=== PATIENT | female | born 1960 | race African-American/Black ===

== ENCOUNTER 2025-01-31 20:06 | Emergency (ER) | payer OTHER, MEDICAID ==
[~2025-01-31] VITALS: Ht 180.3 cm; Wt 118.1 kg
[2025-01-31 20:09] VITALS: TEMP 98
[2025-01-31 21:00] VITALS: PULSE 111; RESP 22; O2SAT 96
--- NOTE | 2025-01-31 21:06 | ED.PDOC ---
History of Present Illness HPI Comments 64-year-old female with trach presents with a chief complaint of SOB and trach issues. Patient states that her trach balloon has not been staying inflated and has been causing her to feel increasingly SOB. Patient mentions that this has been an issue for the past 3 days. Patient also reports that it has been difficult for her to talk due to the issue. Patient is able to speak in complete sentences at this time. Chief Complaint: Shortness of Breath Time Seen by MD: 20:36 Reviewed Notes: Medications, Allergies Allergies: Coded Allergies: Hydromorphone (Verified Allergy, Unknown, 01/31/25) Information Source: Patient Mode of Arrival: EMS Severity: Moderate Timing: Days Duration: Since onset Prehospital treatment: None Past Medical History PAST MEDICAL HISTORY: Denies Surgical History: Denies all surgeries PROCESSING TECHNOLOGIST History: Denies all PROCESSING TECHNOLOGIST Hx Family History Family History: Reviewed,noncontributory to illness Social History Smoker: Non-Smoker Alcohol: Denies ETOH Use Drugs: Denies Drug Use Lives In: Home Constitutional: denies: chills, diaphoresis, fatigue, fever, malaise, sweats, weakness, others EENTM: denies: blurred vision, double vision, ear bleeding, ear discharge, ear drainage, ear pain, ear ringing, eye pain, eye redness, hearing loss, mouth pain, mouth swelling, nasal discharge, nose bleeding, nose congestion, nose pain, photophobia, tearing, throat pain, throat swelling, voice changes, others Respiratory: reports: shortness of breath; denies: cough, hemoptysis, orthopnea, SOB at rest, SOB with excertion, stridor, wheezing, others Cardiovascular: denies: chest pain, dizzy spells, diaphoresis, Dyspnea on exertion, edema, irregular heart beat, left arm pain, lightheadedness, palpitations, PND, syncope, others Gastrointestinal: denies: abdomen distended, abdominal pain, blood streaked bowels, constipated, diarrhea, dysphagia, difficulty swallowing, hematemesis, melena, nausea, poor appetite, poor fluid intake, rectal bleeding, rectal pain, vomiting, others Genitourinary: denies: abnormal vagina bleeding, burning, dyspareunia, dysuria, flank pain, frequency, hematuria, incontinence, pain, , vagina discharge, urgency, others Neurological: denies: dizziness, fainting, headache, left sided numbness, left sided weakness, numbness, paresthesia, pre-existing deficit, right sided numbness, right sided weakness, seizure, speech problems, tingling, tremors, weakness, others Musculoskeletal: denies: back pain, gout, joint pain, joint swelling, muscle pain, muscle stiffness, neck pain, others Integumetry: denies: bruises, change in color, change in hair/nails, dryness, laceration, lesions, lumps, rash, wounds, others Allergic/Immunocompromised: denies: Difficulty Healing, Frequent Infections, Hives, Itching, others Hematologic/Lymphatic: denies: anemia, blood clots, easy bleeding, easy bruising, swollen glands, others Endocrine: denies: excessive hunger, excessive sweating, excessive thirst, excessive urination, flushing, intolerance to cold, intolerance to heat, unexplained weight gain, unexplained weight loss, others Psychiatric: denies: anxiety, bipolar disorder, depression, hopeless, panic dis order, schizophrenia, sleepless, suicidal, others All Other Systems: Reviewed and Negative Physical Exam General Appearance: No Apparent Distress, Normal HEENT: Normal ENT Inspection, Pharynx Normal, TMs Normal Neck: Full Range of Motion, Non-Tender, Normal, Normal Inspection Respiratory: Chest Non-Tender, Lungs Clear, No Accessory Muscle Use, No Respiratory Distress, Normal Breath Sounds Cardiovascular: No Edema, No JVD, No Murmur, No Gallop, Normal Peripheral Pulses, Regular Rate/Rhythm Breast Exam: Deferred Gastrointestinal: No Organomegaly, Non Tender, No Pulsatile Mass, Normal Bowel Sounds, Soft Genitalia: Deferred Pelvic: Deferred Rectal: Deferred Extremities: No calf tenderness, Normal capillary refill, Normal inspection, Normal range of motion, Non-tender, No pedal edema Musculoskeletal : Apperance: Normal Neurologic: Alert, supervisor prep II-XII nml as Tested, No Motor Deficits, Normal Affect, Normal Mood, No Sensory Deficits Cerebellar Function: Normal Reflexes: Normal Skin: Dry, Normal Color, Warm Lymphatic: No Adenopathy Was a procedure done? Was a procedure done?: Yes Sedation Sedation?: No Other Procedure Procedure Tracheal tube replacement: Original tracheal tube was deflated and removed without complications. A new 7.5 mm tingling to was placed in and inflated to patient comfort without complications. Patient reports improvement in her respirations. Blood pressure also improved status post tracheal change. Assessment of old tracheal tube did show that balloon was damaged Differential Dx Considerations may include: Trachea tube malfunction X-Ray, Labs, Meds, VS Vital Signs Date Time Temp Pulse Resp B/P (MAP) Pulse Ox O2 Delivery O2 Flow Rate FiO2 01/31/25 20:30 203 01/31/25 20:09 98.0 107 24 187/95 97 98.0 Time of 1ST Reevaluation: 21:06 Reevaluation 1ST: Unchanged Patient Education/Counseling: Diagnosis, Treatment, Need For Follow Up Family Education/Counseling: Diagnosis, Treatment, Need For Follow Up SEPSIS Sepsis Screen Vital Signs Date Time Temp Pulse Resp B/P (MAP) Pulse Ox O2 Delivery O2 Flow Rate FiO2 01/31/25 20:30 203 01/31/25 20:09 98.0 107 24 187/95 97 98.0 Departure 1 Departure Time of Disposition: 21:37 Impression: Primary Impression: Tracheostomy complication Qualified Codes: J95.09 - Other tracheostomy complication Disposition: 01 HOME / SELF CARE / HOMELESS Condition: Fair Discharged With: Self Critical Care Note Critical Care Time?: No Stability Stability form required: No I personally scribed for CAMERON DIAZ ([email or web address]) on 01/31/25 at 21:06. Electronically submitted by Johnny Read ([email or web address]). CAMERON DIAZ Jan 31, 2025 21:06
[2025-01-31 23:17] VITALS: BP 142/90; PULSE 103; RESP 12; O2SAT 99
== END 2025-02-01 00:25 | disposition home or self-care (01) ==
LOC: EDBD 20:06 → ER 20:06
DX: J95.09 Other tracheostomy complication (principal); Z88.5 Allergy status to narcotic agent